=== PATIENT | female | born 1945 | race Caucasian/White ===

== ENCOUNTER 2024-04-29 11:41 | Emergency (ER) | payer MEDICARE, BC ==
[~2024-04-29] VITALS: Ht 162.6 cm; Wt 52.0 kg
[2024-04-29 13:01] VITALS: BP 136/54; PULSE 60; RESP 13; TEMP 98.6; O2SAT 92
[2024-04-29 13:17] LABS: BASOPHILS # (AUTO) 0.1 X10'3 (0-0.2); BASOPHILS % (AUTO) 0.9 % (0-1); EOSINOPHILS # (AUTO) 0.2 X10'3 (0-0.9); EOSINOPHILS % (AUTO) 2.8 % (0-6); HEMATOCRIT 32.7 % (35.0-45.0); HEMOGLOBIN 10.9 g/dl (12.0-16.0); LYMPHOCYTES # (AUTO) 0.5 X10'3 (1.1-4.8); LYMPHOCYTES % (AUTO) 6.6 % (21-51); MEAN CORPUSCULAR HEMOGLOBIN 29.9 PG (27.0-31.0); MEAN CORPUSCULAR HGB CONC 33.3 g/dL (33.0-36.5); MEAN CORPUSCULAR VOLUME 89.8 FL (78-98); MEAN PLATELET VOLUME 7.5 FL (7.4-10.4); MONOCYTES # (AUTO) 0.8 X10'3 (0-0.9); MONOCYTES % (AUTO) 10.8 % (2-12); NEUTROPHILS # (AUTO) 6.1 X10'3 (1.8-7.7); NEUTROPHILS % (AUTO) 78.9 % (42-75); PLATELET COUNT 187 X10'3 (140-440); RED BLOOD COUNT 3.64 X10'6 (4.20-5.60); RED CELL DISTRIBUTION WIDTH 15.8 % (11.5-14.5); WHITE BLOOD COUNT 7.7 X10'3 (4.5-11.0)
[2024-04-29 13:29] LABS: D-DIMER 0.64 MG/L FEU (0-0.50)
[2024-04-29 13:32] LABS: ALANINE AMINOTRANSFERASE 27 U/L (12-78); ALBUMIN 3.4 G/DL (3.4-5.0); ALBUMIN/GLOBULIN RATIO 0.9 (1.1-1.5); ALKALINE PHOSPHATASE 40 IU/L (46-116); ANION GAP 13 (8-16); ASPARTATE AMINO TRANSFERASE 19 U/L (10-37); BLOOD UREA NITROGEN 41 MG/DL (7-18); C-REACTIVE PROTEIN 1.31 MG/DL (0.0-0.5); CALCIUM 8.4 MG/DL (8.5-10.1); CHLORIDE 104 MMOL/L (99-107); CREATININE 5.13 MG/DL (0.40-0.90); GLUCOSE 143 MG/DL (70-104); POTASSIUM 3.3 MMOL/L (3.5-5.1); SODIUM 137 MMOL/L (135-145); TOTAL CARBON DIOXIDE 20.1 MMOL/L (24-32); eCRCL 7 ML/MIN; eGFR 8 ML/MIN
[2024-04-29] MEDS ORDERED: SODI650T29 PO (16:59)
== END 2024-04-29 17:10 | disposition home or self-care (01) ==
LOC: ER 11:41
DX: E87.20 Acidosis, unspecified (principal); M79.662 Pain in left lower leg; I12.0 Hypertensive chronic kidney disease with stage 5 chronic kidney disease or end stage renal disease; N18.5 Chronic kidney disease, stage 5
CPT/HCPCS: 36415; 80053; 83605; 84145; 85025; 85379; 86140; 87040; 93970; 99284